=== PATIENT | female | born 1980 | race Caucasian/White ===

== ENCOUNTER 2020-07-08 12:13 | Emergency (ER) | payer OTHER ==
[~2020-07-08] VITALS: Ht 172.7 cm; Wt 49.9 kg
[2020-07-08 12:37] VITALS: BP 105/75
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
[2020-07-08] MEDS ORDERED: ROBAXIN-750750 MG PO (12:55)
[2020-07-08] MEDS ORDERED: LIDODERM700 M1 TOPIC (12:55)
[2020-07-08] MEDS ORDERED: IBUPROFEN600 M1 ORAL (12:55)
[2020-07-08] MEDS ORDERED: TYLENOL EXTRA500 MG ORAL (12:55)
[2020-07-08] MEDS ORDERED: Acetaminophen 500mg (ES) tab ORAL ONE (13:00)
[2020-07-08] MEDS ORDERED: Methocarbamol 750mg tab ORAL ONE (13:00)
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
== END 2020-07-08 13:06 | disposition home or self-care (01) ==
LOC: EMR 13:01
DX: S39.012A Strain of muscle, fascia and tendon of lower back, initial encounter (principal); T14.8XXA Other injury of unspecified body region, initial encounter; V43.52XA Car driver injured in collision with other type car in traffic accident, initial encounter; Y92.410 Unspecified street and highway as the place of occurrence of the external cause; G47.00 Insomnia, unspecified
CPT/HCPCS: 99282